=== PATIENT | female | born 1955 | race Caucasian/White ===

== ENCOUNTER 2017-03-18 11:10 | Emergency (ER) | payer BC ==
[~2017-03-18] VITALS: Ht 157.5 cm; Wt 52.0 kg
[2017-03-18 11:17] VITALS: BP 121/58; PULSE 60; RESP 16; TEMP 97.5; O2SAT 100
[2017-03-18] MEDS ORDERED: HRT (11:38)
--- NOTE | 2017-03-18 11:56 | PD ---
HPI Chief Complaint: Fall Time Seen by Provider: 11:45 Travel History International Travel<30 days: No Contact w/Intl Traveler<30days: No Traveled to known affect area: No History of Present Illness HPI 61-year-old female presents for evaluation after mechanical fall. Prior to arrival the patient was standing on the toilet when she slipped and fell, landing on her butt. She reports that she hit her head against the bathtub but denies loss of consciousness. She is complaining of sacral pain. The pain is an aching pain which is constant, radiates in the hips. Pain is worse with movement. She endorses a occipital scalp hematoma which is mildly tender but denies global headache, confusion or amnesia, vomiting, blurred vision. She had some nausea initially after the accident but that resolved. She is not on any blood thinning medications. She has no other complaints at this time. [facility] Social History Alcohol Use: No Tobacco Use: No Substance Use: No Allergies-Medications (Allergen,Severity, Reaction): Coded Allergies: No Known Allergies (Unverified , 03/18/17) Reported Meds & Prescriptions Reported Meds & Active Scripts Active Reported [Hrt] Review of Systems Except as stated in HPI: all other systems reviewed are Neg Physical Exam Narrative GENERAL: Well-developed well-nourished female in no acute distress SKIN: Warm and dry. HEAD: There is an occipital scalp hematoma which is tender to palpation with no bony step-offs. Normocephalic. EYES: Pupils equal and round. No scleral icterus. No injection or drainage. ENT: No nasal bleeding or discharge. Mucous membranes pink and moist. NECK: Trachea midline. No JVD. CARDIOVASCULAR: Regular rate and rhythm. No murmur appreciated. RESPIRATORY: No accessory muscle use. Clear to auscultation. Breath sounds equal bilaterally. GASTROINTESTINAL: Abdomen soft, non-tender, nondistended. Hepatic and splenic margins not palpable. MUSCULOSKELETAL: No obvious deformities. There is some tenderness to palpation of the sacrum. No tenderness to palpation along the cervical thoracic or lumbar midline spine. Full range of motion of the lower extremities. NEUROLOGICAL: Awake and alert. No obvious cranial nerve deficits. Motor grossly within normal limits. Normal speech. PSYCHIATRIC: Appropriate mood and affect; insight and judgment normal. Data Data Last Documented VS Vital Signs Date Time Temp Pulse Resp B/P (MAP) Pulse Ox O2 Delivery O2 Flow Rate FiO2 9/30/17 11:17 97.5 60 16 121/58 (79) 100 Orders Orders Sacrum And Coccyx (03/18/17 ) Pelvis, Ap Only (Routine) (03/18/17 ) MDM Medical Decision Making Medical Screen Exam Complete: Yes Emergency Medical Condition: Yes Medical Record Reviewed: Yes Differential Diagnosis Sacral contusion, sacral fracture, hematoma Narrative Course 62-year-old female presents after mechanical fall. She landed on her butt and hit the back of her head against the bathtub. She is having sacral pain. X- ray imaging the pelvis and sacrum abdomen ordered. She has a occipital scalp hematoma with no neurologic symptoms. Discussed the possibility of obtaining CT imaging of the brain however she is declining which seems reasonable at this time. X-ray imaging reveals no acute abnormality as per the patient is stable for discharge. Diagnosis Primary Impression: Scalp hematoma Qualified Codes: S00.03XA - Contusion of scalp, initial encounter Additional Impression: Sacral contusion Qualified Codes: S30.0XXA - Contusion of lower back and pelvis, initial encounter Additional Instructions: Ice pack to the affected area several times a day 15 minutes at a time. Rest. Tylenol or Motrin for discomfort. Follow-up with primary care physician as needed. Return for any emergent medical conditions. Med/Other Pt SpecificInfo: No Change to Meds Disposition: 01 DISCHARGE HOME Condition: Stable Shon Sanz Mar 18, 2017 11:56
--- NOTE | 2017-03-18 12:59 | RADRPT ---
EXAM DATE/TIME: 03/18/2017 12:36 [facility] COMPARISON: No previous studies available for comparison. INDICATIONS : Fall this morning. MEDICAL HISTORY : None. SURGICAL HISTORY : None. ENCOUNTER: Initial ACUITY: 1 day PAIN SCORE: 10/10 LOCATION: Bilateral Rear end FINDINGS: A single frontal view of the pelvis demonstrates no evidence of fracture. The bony pelvic ring is in tact. Bony mineralization is normal. The soft tissues are intact. CONCLUSION: 1. No acute fracture or dislocation. Roe Lopez MD on March 18, 2017 at 12:57 Board Certified Radiologist. This report was verified electronically.
--- NOTE | 2017-03-18 13:00 | RADRPT ---
EXAM DATE/TIME: 03/18/2017 12:41 [facility] COMPARISON: No previous studies available for comparison. INDICATIONS : Fall this morning. MEDICAL HISTORY : None. SURGICAL HISTORY : None. ENCOUNTER: Initial ACUITY: 1 day PAIN SCORE: 10/10 LOCATION: Bilateral Rear end FINDINGS: Two-view examination of the sacrum and coccyx demonstrates no evidence of fracture or malalignment. The sacral ala and foramina appear symmetric and intact. The coccyx appears unremarkable. There are facet degenerative changes seen at L5/S1. The prevertebral soft tissues are within normal limits. CONCLUSION: Facet degenerative changes seen at L5/S1. Normal valuation of the sacrum and coccyx. Criss Lackey MD on March 18, 2017 at 12:58 Board Certified Radiologist. This report was verified electronically.
== END 2017-03-18 13:38 | disposition home or self-care (01) ==
LOC: PHEFT 11:10
DX: S00.03XA Contusion of scalp, initial encounter (principal); S30.0XXA Contusion of lower back and pelvis, initial encounter; W17.89XA Other fall from one level to another, initial encounter; W22.09XA Striking against other stationary object, initial encounter; Y92.002 Bathroom of unspecified non-institutional (private) residence as the place of occurrence of the external cause
CPT/HCPCS: 72170; 72220; 99283